=== PATIENT | male | born 1990 | race African-American/Black ===

== ENCOUNTER 2019-09-07 20:11 | Emergency (ER) | payer SELFPAY ==
[2019-09-07] MEDS ORDERED: Azithromycin 250 MG TAB ONE (20:47)
[2019-09-07] MEDS ORDERED: cefTRIAXone\\ROCEPHIN 250 MG VIAL ONE (20:47)
[2019-09-07] MEDS ORDERED: Lidocaine 1% PF 5 ML VIAL ONE (20:47)
[2019-09-07 21:13] LABS: Bacteria/HPF None Seen HPF (None Seen); Bilirubin Negative (Negative); Blood, Urine 1+ (Negative); Clarity Extra Turbid (Clear); Glucose, Urine (Dipstick) Normal (Negative); Leukocyte 500 Leu/uL (Negative); Nitrite Negative (Negative); Protein, Urine (Dipstick) 70 mg/dL (Neg-Trace); RBC/HPF 21-50 HPF (0-3); Squamous Epithelial 0-3 HPF (0-3); WBC/HPF Greater than 50 HPF (0-3)
[2019-09-10 23:06] LABS: Chlam.trachomatis by PCR,Urine Inconclusive (NotDetected)
== END 2019-09-07 21:20 | disposition home or self-care (01) ==
LOC: ERS 20:11
DX: N34.2 Other urethritis (principal); F17.210 Nicotine dependence, cigarettes, uncomplicated
CPT/HCPCS: 81003; 81015; 87086; 87491; 87591; 96374; J0696; J2001